=== PATIENT | female | born 1980 | race Caucasian/White ===

== ENCOUNTER 2020-12-28 09:01 | Emergency (ER) | payer OTHER ==
[2020-12-28 09:24] VITALS: TEMP 99; BMI 24.0
[2020-12-28] MEDS ORDERED: SODIUM CHLORIDE 1,000 ML IV STA (09:49)
[2020-12-28] MEDS ORDERED: ACETAMINOPHEN 1000 MG/100 ML VIAL (NON FORMULARY) IVPB ONE (09:49)
[2020-12-28] MEDS ORDERED: ACETAMINOPHEN INJECTION 100 ML IVPB ONE (09:58)
[2020-12-28 10:27] LABS: HEMOGLOBIN 13.7 GM/dl (10.7-15.3); MCH 31.7 pg (25.7-33.7); MEAN PLT VOLUME 8.8 fl (7.5-11.1)
[2020-12-28 10:34] LABS: ALBUMIN 4.2 g/dl (3.4-5.0); ALK PHOS 39 U/L (45-117); ANION GAP 7 MMOL/L (8-16); CALCIUM 9.1 mg/dl (8.5-10); CHLORIDE 105 mmol/L (98-107); CO2 25 mmol/L (21-32); CREATININE 0.8 mg/dl (0.55-1.3); GLUCOSE,RANDOM 100 mg/dl (74-106); SGOT/AST 23 U/L (15-37); SGPT/ALT 20 U/L (13-61); SODIUM 137 mmol/L (136-145); TOT PROT 6.8 g/dl (6.4-8.2)
[2020-12-28 10:35] LABS: BASO % 1.7 % (0-2.0); EOS % 1.8 % (0-4.5); LYMPH % 33.4 % (8-40); MCHC 34.2 g/dl (32.0-36.0); MEAN CELL VOLUME 92.6 fl (80-96); MONO % 10.6 % (3.8-10.2); NEUT % 52.5 % (42.8-82.8); PLATELET COUNT 202 10^3/uL (134-434); RBC 4.32 M/mm3 (3.60-5.2); RDW 12.1 % (11.6-15.6); WHITE BLOOD COUNT 4.1 K/mm3 (4.0-10.8)
[2020-12-28 11:20] VITALS: BP 111/70; PULSE 57
== END 2020-12-28 12:38 | disposition home or self-care (01) ==
LOC: FER 09:01
PROC: 3E0337Z Introduction of Electrolytic and Water Balance Substance into Peripheral Vein, Percutaneous Approach (ICD-10-PCS; principal; 2020-12-28)
PROC: 3E033GC Introduction of Other Therapeutic Substance into Peripheral Vein, Percutaneous Approach (ICD-10-PCS; principal; 2020-12-28)
DX: R07.9 Chest pain, unspecified (principal)
CPT/HCPCS: 36415; 71046-TC-FY; 80053; 82550; 84484; 84703; 85025; 85379; 93005; 96361; 96374; 99285-25; J0131